=== PATIENT | male | born 1970 | race African-American/Black ===

== ENCOUNTER 2018-04-29 10:56 | Emergency (ER) | payer MEDICAID ==
[~2018-04-29] VITALS: Ht 188 cm; Wt 97.0 kg
[2018-04-29] MEDS ORDERED: SODIUM CHLORIDE 0.9% 1,000 ML IV ONE (14:25)
[2018-04-29] MEDS ORDERED: HYDROCODONE/ACETAMINOPHEN 5/325MG TABLET PO ONE (14:30)
[2018-04-29 14:39] LABS: HEMATOCRIT. 45.4 % (42.0-52.0); HEMOGLOBIN. 15.1 g/dL (14.0-18.0); MEAN CORPUSCULAR HEMOGLOBIN 31.9 pg (28.0-32.0); MEAN CORPUSCULAR VOLUME 95.9 fL (80.0-94.0); MEAN PLATELET VOLUME 8.3 fl (7.4-10.4); PLATELET 268 x1000/uL (130-400); RED BLOOD CELL COUNT 4.74 mill/uL (4.7-6.1); RED CELL DISTRIBUTION WIDTH 13.1 % (11.6-14.6)
[2018-04-29 14:44] LABS: CHLORIDE 106 mEq/L (98-107)
[2018-04-29 14:50] LABS: PROTHROMBIN TIME 10.5 sec (9.1-11.1)
[2018-04-29 14:57] LABS: PLATELET ESTIMATE NORMAL
[2018-04-29 17:23] LABS: CLARITY URINE CLEAR (CLEAR); COLOR URINE YELLOW (YELLOW); KETONES URINE NEGATIVE (NEGATIVE); LEUKOCYTE ESTERASE URINE NEGATIVE (NEGATIVE); NITRITE URINE NEGATIVE (NEGATIVE); OCCULT BLOOD URINE NEGATIVE (NEGATIVE); PROTEIN URINE NEGATIVE (NEGATIVE); SPECIFIC GRAVITY URINE 1.014 (1.005-1.030); UROBILINOGEN URINE 0.2 E.U./dL (0.2-1.0)
[2018-04-29] MEDS ORDERED: IBUPROFEN 800MG TABLET PO ONE (17:30)
[2018-04-29 17:35] VITALS: BP 113/78
== END 2018-04-29 18:05 | disposition home or self-care (01) ==
LOC: ER 10:56
DX: N50.811 Right testicular pain (principal); R10.31 Right lower quadrant pain; F99 Mental disorder, not otherwise specified; Z88.1 Allergy status to other antibiotic agents
CPT/HCPCS: 36415; 74176; 76870; 80053; 81003; 83690; 85025; 85610; 93976; 99284; J7030